=== PATIENT | female | born 1975 | race Caucasian/White ===

== ENCOUNTER 2017-09-11 20:48 | Emergency (ER) | END 2017-09-11 21:17 | disposition home or self-care (01) ==

== ENCOUNTER 2017-10-28 15:53 | Emergency (ER) | END 2017-10-28 17:27 | disposition home or self-care (01) ==

== ENCOUNTER 2018-01-05 22:40 | Emergency (ER) | END 2018-01-06 06:40 | disposition home or self-care (01) ==

== ENCOUNTER 2018-04-01 06:37 | Emergency (ER) | END 2018-04-01 08:55 | disposition home or self-care (01) ==

== ENCOUNTER 2018-09-09 19:17 | Emergency (ER) | payer SELFPAY ==
[~2018-09-09] VITALS: Ht 152.4 cm; Wt 56.0 kg
[~2018-09-09 19:17] MED LIST: ALBU8.5H5 INH; ALBU8.5H8 INH; AZIT250T PO; BACTDS PO; BENZ-6 PO; CEPH500C PO; CETI10CA PO; CIPR500T4 PO; DOXY100T20 PO; GUAI118L94 PO; HYDR-4011 PO; IBUP-1542 PO; METF-849 PO; NAPR-688 PO; SODI44SP11 NS
[2018-09-09 19:27] VITALS: BP 131/66; PULSE 97; RESP 18; Ht 152.4 cm; Wt 56.0 kg
[2018-09-10] MEDS ORDERED: AZIT250T PO (09:29)
[2018-09-10] MEDS ORDERED: ALBU8.5H8 INH (09:29)
[2018-09-10] MEDS ORDERED: PROM6.2515 PO (09:29)
== END 2018-09-10 00:26 | disposition left against medical advice (07) ==
LOC: FTE 19:17
DX: Z53.21 Procedure and treatment not carried out due to patient leaving prior to being seen by health care provider (principal)

== ENCOUNTER 2018-09-10 08:48 | Emergency (ER) | payer MEDICAID ==
[~2018-09-10] VITALS: Ht 157.5 cm; Wt 55.2 kg
[2018-09-10 08:56] VITALS: BP 118/63; PULSE 100; RESP 18; Ht 157.5 cm; Wt 55.2 kg
[2018-09-10] MEDS ORDERED: AZIT250T PO (09:29)
[2018-09-10] MEDS ORDERED: PROM6.2515 PO (09:29)
[2018-09-10] MEDS ORDERED: ALBU8.5H8 INH (09:29)
--- NOTE | 2018-09-10 10:20 | ERD ---
ER Documentation Chief Complaint Chief Complaint sore throat and cough x 3 weeks HPI 43-year-old female presenting with sore throat and cough times 3 weeks. She is a history of asthma. States her cough is dry. No fevers. Has a mild sore throat with a mild runny nose. Medical history is diabetes. NKDA. Surgical history . Social history denies ROS All systems reviewed and are negative except as per history of present illness. Medications Home Meds Active Scripts Azithromycin* (Zithromax*) 250 Mg Tablet, 250 MG PO .ZPACK DIRECTED, #6 TAB TAKE 500 MG (2 TABS) THE FIRST DAY THEN 250 MG (1 TAB) DAYS 2-5 Prov:SACHA WILLARD PA-C 09/10/18 Albuterol Sulfate* (Proair HFA*) 8.5 Gm Hfa.aer.ad, 2 PUFF INH Q4, #1 INHALER Prov:SACHA WILLARD PA-C 09/10/18 Promethazine Hcl* (Promethazine Hcl* Syrup) 6.25 Mg/5 Ml Syrup, 6.25 MG PO Q6H PRN for COUGH, #100 ML Prov:SACHA WILLARD PA-C 09/10/18 Ciprofloxacin Hcl* (Ciprofloxacin Hcl*) 500 Mg Tablet, 500 MG PO BID for 7 Days, TAB Prov:WIL BOTELLO DO 01/06/18 Metformin* (Glucophage*) 500 Mg Tab, 500 MG PO BID, #40 TAB Prov:WIL BOTELOL DO 01/06/18 Benzonatate* (Tessalon Perle*) 100 Mg Capsule, 100 MG PO Q8H PRN for COUGH, #17 CAP Prov:WIL BOTELLO DO 10/28/17 Doxycycline Hyclate* (Doxycycline Hyclate*) 100 Mg Tablet.dr, 100 MG PO BID for 10 Days, TAB Prov:WIL BOTELLO DO 10/28/17 Naproxen* (Naproxen*) 500 Mg Tablet, 500 MG PO BID PRN for PAIN, #20 TAB Prov:WIL BOTELLO DO 10/28/17 Hydrocodone/Acetaminophen ([place] 5-325 Tablet) 1 Each Tablet, 1 EACH PO Q6 for cough, severe pain, #10 TAB Prov:WIL BOTELLO DO 10/28/17 Albuterol Sulfate* (Proair HFA*) 8.5 Gm Hfa.aer.ad, 2 PUFF INH Q4H PRN for WHEEZING AND SOB, #1 INHALER Prov:SHANT SON SOCK FOLDER 09/11/17 Azithromycin* (Zithromax*) 250 Mg Tablet, 250 MG PO .ZPACK DIRECTED, #6 TAB TAKE 500 MG (2 TABS) THE FIRST DAY THEN 250 MG (1 TAB) DAYS 2-5 Prov:SHANT SON SOCK FOLDER 09/11/17 Ibuprofen* (Motrin*) 600 Mg Tab, 600 MG PO Q6H PRN for PAIN AND OR ELEVATED TEMP, #30 TAB Prov:SHANT SON SOCK FOLDER 09/11/17 Cetirizine Hcl* (Zyrtec*) 10 Mg Capsule, 10 MG PO DAILY, #30 TAB.CHEW Prov:SHANT SON NP 09/11/17 Benzonatate* (Tessalon Perle*) 100 Mg Capsule, 100 MG PO Q8H PRN for COUGH, #20 CAP Prov:SHANT SON SOCK FOLDER 09/11/17 Ibuprofen* (Motrin*) 600 Mg Tab, 600 MG PO Q6, #30 TAB Prov:UZAIR DAS 12/19/15 Cephalexin* (Cephalexin*) 500 Mg Capsule, 500 MG PO Q6 for 7 Days, #28 CAP Prov:UZAIR DAS 12/19/15 Sulfamethoxazole-Trimethoprim* (Bactrim* DS) 800-160 Mg Tab, 1 TAB PO BID for 7 Days, TAB Prov:UZAIR DAS 12/19/15 Albuterol Sulfate* (Albuterol Sulfate* HFA) 8.5 Gm Hfa.aer.ad, 2 PUFF INH Q4 PRN for SHORTNESS OF BREATH, #1 EA Prov:DELILAH HOLBROOK NP 07/05/15 Guaifenesin-Codeine Phosphate* (Guaifenesin* with Codeine Liq) 120 Ml Liquid, 5 ML PO Q4H for COUGH, #120 ML Prov:DELILAH HOLBROOK SOCK FOLDER 07/05/15 Sodium Chloride (Saline Nasal [place]) 45 Ml [place], 2 SPRAYS NS Q2H, #1 BOT Prov:DELILAH HOLBROOK SOCK FOLDER 07/05/15 Allergies Allergies: Coded Allergies: No Known Allergies (Verified Allergy, Mild, 10/28/17) PMhx/Soc History of Surgery: Yes (CAESARIAN SECTION) Anesthesia Reaction: No Hx Neurological Disorder: No Hx Respiratory Disorders: No Hx Cardiac Disorders: Yes (DAIBETES MELLITUS) Hx Psychiatric Problems: No Hx Miscellaneous Medical Probl: No Hx Alcohol Use: No Hx Substance Use: No Hx Tobacco Use: No Smoking Status: Never smoker FmHx Family History: No diabetes, No coronary disease, No other Physical Exam Vitals Vital Signs Date Temp Pulse Resp B/P (MAP) Pulse Ox O2 O2 Flow FiO2 Time Delivery Rate 09/10/18 96.7 100 18 118/63 97 08:56 (81) Physical Exam GENERAL: The patient is well-appearing, well-nourished, in no acute distress HEENT: Atraumatic. Conjunctivae are pink. Pupils equal, round, and reactive to light. There is no scleral icterus. Tympanic membranes clear bilaterally. Oropharynx clear. NECK: C-spine is soft and supple. There is no meningismus. There is no cervical lymphadenopathy. CHEST: Clear to auscultation bilaterally. There are no rales, wheezes or rhonchi. HEART: Regular rate and rhythm. No murmurs, clicks, rubs or gallops. Procedures/MDM MDM: 43-year-old female presenting with cough. I have low suspicion for meningitis or sepsis. Patient will be discharged with antibiotics given she has had continued cough for the last 3 weeks with no resolution. Patient will also be discharged with supportive medications. Patient is told symptoms change or worsen to return immediately to the ER. All questions answered at discharge Departure Diagnosis: Primary Impression: Cough Condition: Stable Patient Instructions: Cough, Chronic, Uncertain Cause, (Adult) Referrals: COMMUNITY CLINICS YOU HAVE RECEIVED A MEDICAL SCREENING EXAM AND THE RESULTS INDICATE THAT YOU DO NOT HAVE A CONDITION THAT REQUIRES URGENT TREATMENT IN THE EMERGENCY DEPARTMENT. FURTHER EVALUATION AND TREATMENT OF YOUR CONDITION CAN WAIT UNTIL YOU ARE SEEN IN YOUR DOCTORS OFFICE WITHIN THE NEXT 1-2 DAYS. IT IS YOUR RESPONSIBILITY TO MAKE AN APPOINTMENT FOR FOLOW-UP CARE. IF YOU HAVE A PRIMARY DOCTOR --you should call your primary doctor and schedule an appointment IF YOU DO NOT HAVE A PRIMARY DOCTOR YOU CAN CALL OUR PHYSICIAN REFERRAL HOTLINE AT IF YOU CAN NOT AFFORD TO SEE A PHYSICIAN YOU CAN CHOSE FROM THE FOLLOWING [facility] CL[facility] [address] [facility] [address] [facility] [address] [facility] [address] [facility] [address] [facility]. [address] Additional Instructions: FOLLOW UP WITH YOUR PRIMARY CARE PHYSICIAN TOMORROW.Return to this facility if you are not improving as expected. SACHA WILLARD PA-C Sep 10, 2018 10:20
== END 2018-09-10 10:03 | disposition home or self-care (01) ==
LOC: FTE 08:48
DX: R05 Cough (principal); E11.9 Type 2 diabetes mellitus without complications; J45.909 Unspecified asthma, uncomplicated; Z79.84 Long term (current) use of oral hypoglycemic drugs
CPT/HCPCS: 99283

== ENCOUNTER 2019-01-03 11:09 | Emergency (ER) | payer MEDICAID ==
[~2019-01-03] VITALS: Ht 157.5 cm; Wt 55.4 kg
[~2019-01-03 11:09] MED LIST changes: +PROM6.2515 PO
[2019-01-03 11:11] VITALS: BP 121/70; PULSE 89; RESP 19; Ht 157.5 cm; Wt 55.4 kg
[2019-01-03] MEDS ORDERED: KETOROLAC 60 MG INJ IM STA (11:40)
--- NOTE | 2019-01-03 11:44 | ERD ---
ER Documentation Chief Complaint Chief Complaint RIGHT FACIAL PAIN X 2 DAYS HPI Patient is a 43 years old female with PMHx of DM II presenting to the clinic with right sided facial and ocular pain x 2 days. Patient rates her pain 8/10 and describes it as burning. Patient reports of epiphora and denies any foreign body or scratching sensation. Patient denies discharge or crusting. Patient admits to taking OTC NSAID's without resolution. Patient reports having similar symptoms in the past and was treated with tobramycin & dexamethasone eye drop and is requesting the medication. ROS All systems reviewed and are negative except as per history of present illness. Medications Home Meds Active Scripts Nitrofurantoin Monohyd Macrocr* (Macrobid*) 100 Mg Capsr, 100 MG PO HS for 7 Days, CAP Prov:CAMI AZAR PA-C 01/03/19 Loratadine* (Claritin*) 5 Mg Tab.rapdis, 5 MG PO DAILY, #30 TAB Prov:CAMI AZAR PA-C 01/03/19 Tobramycin-Dexamethasone* (Tobradex* Ophth) 0.3%-0.1% Soln, 1 DROP RIGHT EYE Q4 for 5 Days, EA Prov:CAMI AZAR PA-C 01/03/19 Azithromycin* (Zithromax*) 250 Mg Tablet, 250 MG PO .ZPACK DIRECTED, #6 TAB TAKE 500 MG (2 TABS) THE FIRST DAY THEN 250 MG (1 TAB) DAYS 2-5 Prov:SACHA WILLARD PA-C 09/10/18 Albuterol Sulfate* (Proair HFA*) 8.5 Gm Hfa.aer.ad, 2 PUFF INH Q4, #1 INHALER Prov:SACHA WILLARD PA-C 09/10/18 Promethazine Hcl* (Promethazine Hcl* Syrup) 6.25 Mg/5 Ml Syrup, 6.25 MG PO Q6H PRN for COUGH, #100 ML Prov:SACHA WILLARD PA-C 09/10/18 Ciprofloxacin Hcl* (Ciprofloxacin Hcl*) 500 Mg Tablet, 500 MG PO BID for 7 Days, TAB Prov:WIL BOTELLO DO 01/06/18 Metformin* (Glucophage*) 500 Mg Tab, 500 MG PO BID, #40 TAB Prov:WIL BOTELLO DO 01/06/18 Benzonatate* (Tessalon Perle*) 100 Mg Capsule, 100 MG PO Q8H PRN for COUGH, #17 CAP Prov:WIL BOTELLO DO 10/28/17 Doxycycline Hyclate* (Doxycycline Hyclate*) 100 Mg Tablet.dr, 100 MG PO BID for 10 Days, TAB Prov:WIL BOTELLO DO 10/28/17 Naproxen* (Naproxen*) 500 Mg Tablet, 500 MG PO BID PRN for PAIN, #20 TAB Prov:WIL BOTELLO DO 10/28/17 Hydrocodone/Acetaminophen ([place] 5-325 Tablet) 1 Each Tablet, 1 EACH PO Q6 for cough, severe pain, #10 TAB Prov:WIL BOTELLO DO 10/28/17 Albuterol Sulfate* (Proair HFA*) 8.5 Gm Hfa.aer.ad, 2 PUFF INH Q4H PRN for WHEEZING AND SOB, #1 INHALER Prov:SHANT SON NP 09/11/17 Azithromycin* (Zithromax*) 250 Mg Tablet, 250 MG PO .ZPACK DIRECTED, #6 TAB TAKE 500 MG (2 TABS) THE FIRST DAY THEN 250 MG (1 TAB) DAYS 2-5 Prov:SHANT SON NP 09/11/17 Ibuprofen* (Motrin*) 600 Mg Tab, 600 MG PO Q6H PRN for PAIN AND OR ELEVATED TEMP, #30 TAB Prov:SHANT SON NP 09/11/17 Cetirizine Hcl* (Zyrtec*) 10 Mg Capsule, 10 MG PO DAILY, #30 TAB.CHEW Prov:SHANT SON TRAVEL COUNSELOR 09/11/17 Benzonatate* (Tessalon Perle*) 100 Mg Capsule, 100 MG PO Q8H PRN for COUGH, #20 CAP Prov:SHANT SON TRAVEL COUNSELOR 09/11/17 Ibuprofen* (Motrin*) 600 Mg Tab, 600 MG PO Q6, #30 TAB Prov:UZAIR DAS 12/19/15 Cephalexin* (Cephalexin*) 500 Mg Capsule, 500 MG PO Q6 for 7 Days, #28 CAP Prov:THIAGO,UZAIR C 12/19/15 Sulfamethoxazole-Trimethoprim* (Bactrim* DS) 800-160 Mg Tab, 1 TAB PO BID for 7 Days, TAB Prov:UZAIR DAS 12/19/15 Albuterol Sulfate* (Albuterol Sulfate* HFA) 8.5 Gm Hfa.aer.ad, 2 PUFF INH Q4 PRN for SHORTNESS OF BREATH, #1 EA Prov:DELILAH HOLBROOK. TRAVEL COUNSELOR 07/05/15 Guaifenesin-Codeine Phosphate* (Guaifenesin* with Codeine Liq) 120 Ml Liquid, 5 ML PO Q4H for COUGH, #120 ML Prov:DELILAH HOLBROOK. TRAVEL COUNSELOR 07/05/15 Sodium Chloride (Saline Nasal [place]) 45 Ml [place], 2 SPRAYS NS Q2H, #1 BOT Prov:DELILAH HOLBROOK X. TRAVEL COUNSELOR 07/05/15 Allergies Allergies: Coded Allergies: No Known Allergies (Verified Allergy, Mild, 10/28/17) PMhx/Soc History of Surgery: Yes (CAESARIAN SECTION) Anesthesia Reaction: No Hx Neurological Disorder: No Hx Respiratory Disorders: No Hx Cardiac Disorders: Yes (DAIBETES MELLITUS) Hx Psychiatric Problems: No Hx Miscellaneous Medical Probl: No Hx Alcohol Use: No Hx Substance Use: No Hx Tobacco Use: No Smoking Status: Never smoker Physical Exam Vitals Vital Signs Date Temp Pulse Resp B/P (MAP) Pulse Ox O2 O2 Flow FiO2 Time Delivery Rate 01/03/19 98.0 89 19 121/70 98 11:11 (87) Physical Exam Const: No acute distress Head: Atraumatic. Facial exam is unremarkable. No ocular, lip, facial drooping noted. No facial weakness or paralysis noted. No tenderness to palpation. Eyes: Right Conjunctiva erythematous without bleeding. Epiphora noted from right eye. No Discharge or crusting noted. No Nystagmus or abnormal eye movement noted. ENT: Normal External Ears, Nose and Mouth. Neck: Full range of motion. No meningismus. Resp: Clear to auscultation bilaterally Cardio: Regular rate and rhythm, no murmurs Neur: Awake and alert. CN II-XII intact. Psych: Normal Mood and Affect Results 24 hrs Laboratory Tests Test 01/03/19 11:53 01/03/19 12:00 01/03/19 13:06 POC Beta HCG, Qualitative NEGATIVE Urine Color YELLOW Urine Clarity CLOUDY Urine pH 6.0 Urine Specific [place] 1.029 Urine Ketones 2+ mg/dL Urine Nitrite NEGATIVE mg/dL Urine Bilirubin NEGATIVE mg/dL Urine Urobilinogen NEGATIVE mg/dL Urine Leukocyte Esterase 2+ [place]/ul Urine Microscopic RBC 4 /HPF Urine Microscopic WBC > 182 /HPF Urine Squamous Epithelial Cells FEW /HPF Urine Bacteria FEW /HPF Urine Hemoglobin NEGATIVE mg/dL Urine Glucose 3+ mg/dL Urine Total Protein NEGATIVE mg/dl Bedside Urine pH (LAB) 5.5 Bedside Urine Protein (LAB) Trace Bedside Urine Glucose (UA) 0.50% Bedside Urine Ketones (LAB) 4+ Bedside Urine Blood Negative Bedside Urine Nitrite (LAB) Negative Bedside Urine Leukocyte Esterase Trace (L Current Medications Medications Dose Sig/Ana Start Time Status Last (Trade) Ordered Route PRN Stop Time Admin Dose Reason Admin Ketorolac 60 mg ONCE STAT 01/03/19 DC 01/03/19 Tromethamine IM 11:40 11:59 (Toradol) 01/03/19 11:41 Procedures/MDM Patient was seen and evaluated for right eye pain. Patient is most likely experiencing conjunctivitis (viral vs bacterial). Fluorescein stain not required as no signs of foreign body noted. Facial nerve palsy and CN III palsy least likely due to unremarkable CN exam. Patient is stable and ready for discharge. Provider respected patient's wishes and will be given tobramycin + dexamethasone eye drops. Patient was advised to f/u with PCP. After patient was discharged, Patient came back asking for urinalysis. Patient reports of dysuria, urinary frequency. Urinalysis showed Leukocyte Esterace. Patient will be given Macrobid 100mg PO BID x 7 Days. Departure Diagnosis: Primary Impression: Conjunctivitis Conjunctivitis type: acute Acute conjunctivitis type: unspecified Laterality: right Qualified Codes: H10.31 - Unspecified acute conjunctivitis, right eye Condition: Stable Patient Instructions: Conjunctivitis, Non-Specific Referrals: [facility] [place] Additional Instructions: Paciente aconseja volver a Departamento de urgencias inmediatamente para sntomas nuevos o que empeoran . Paciente aconseja posteriores con el PCP en 2-3 naranjo . Paciente verbaliza la comprehensin y est de acuerdo con el tratamiento y el curso de accin. Si el paciente no tiene ninguna de atencin primaria pueden seguir con [facility] [address] [place] [address] o [facility] + [address] [address] CAMI AZAR PA-C Jan 03, 2019 11:44
[2019-01-03] MEDS ORDERED: SDSTOBDEX RIGHT EYE (12:09)
[2019-01-03] MEDS ORDERED: LORA5TAB4 PO (12:11)
[2019-01-03] MEDS ORDERED: NITR-58 PO (13:50)
== END 2019-01-03 13:59 | disposition home or self-care (01) ==
LOC: FTE 11:09
DX: H10.31 Unspecified acute conjunctivitis, right eye (principal); E11.9 Type 2 diabetes mellitus without complications; Z79.84 Long term (current) use of oral hypoglycemic drugs
CPT/HCPCS: 81001; 81025; J1885; 81003; 96372